=== PATIENT | female | born 1995 | race American Indian/Alaskan Native ===

== ENCOUNTER 2016-10-06 20:03 | Emergency (ER) | payer SELFPAY ==
--- NOTE | 2016-10-06 21:43 | Emergency Department Report ---
ED General Adult HPI - General Chief complaint: Extremity Injury, Upper Stated complaint: MIGRANE,NUMBNESS, THROAT CLOSING Time Seen by Provider: 10/06/16 21:37 Source: patient Limitations: Physical Limitation, Other - History of Present Illness Initial comments: This is a 21-year-old female. She is previously unknown to me. She presents to the ER with a complaint of migraine headache, and inability to feel the left arm, throat closing, chest pain. Migraine headache started at 5:00 this afternoon. It is sharp and throbbing. It is not sudden or thunderclap in nature. It did not reach maximal intensity within an hour. It is associated with frontal facial pain, left-sided neck pain. The patient reports that she was driving at 7:30 PM, and developed inability to move the left arm. She reports left arm numbness. She also reports chest pain. There is no leg pain. There is no leg swelling. No recent trips greater than 4 hours. No recent hospital admissions. Does not take control tablets. Chest pain essential. Has no exacerbating or relieving factors. Patient was brought back to the ER as a possible code stroke. Her fingerstick was 89. She reported that she is not . -: Gradual Location: head, neck, chest, left, upper extremity Radiation: extremity Quality: aching Consistency: constant Improves with: none Worsens with: none Associated Symptoms: chest pain, headaches, weakness - Related Data Previous Rx's Medication Instructions Recorded Last Taken Type Ferrous Sulfate [Feosol 325 MG tab] 325 mg PO TID #90 tablet 10/24/14 Unknown Rx Ibuprofen [Motrin 600 MG tab] 600 mg PO Q6H PRN #10 tablet 10/24/14 Unknown Rx Omeprazole Magnesium [PriLOSEC Otc] 20 mg PO BID #30 tablet. 10/24/14 Unknown Rx Allergies Allergy/AdvReac Type Severity Reaction Status Date / Time No Known Allergies Allergy Unverified 12/18/13 20:07 ED Review of Systems ROS: Stated complaint: MIGRANE,NUMBNESS, THROAT CLOSING Other details as noted in HPI Constitutional: denies: fever Eyes: denies: vision change ENT: denies: epistaxis Respiratory: denies: cough Cardiovascular: chest pain Gastrointestinal: denies: abdominal pain Genitourinary: denies: urgency, dysuria Musculoskeletal: arthralgia, myalgia Skin: denies: lesions Neurological: headache, numbness, paresthesias Psychiatric: anxiety ED Past Medical Hx - Past Medical History Hx Hypertension: No Hx Heart Attack/AMI: No Hx Congestive Heart Failure: No Hx Diabetes: No Hx Deep Vein Thrombosis: No Hx Pulmonary Embolism: No Hx Liver Disease: No Hx Renal Disease: No Hx Sickle Cell Disease: No Hx Arthritis: Yes (hands.knees and ankles) Hx Seizures: No Hx Kidney Stones: No Hx Asthma: No Hx COPD: No Hx Tuberculosis: No Hx Dementia: No Hx HIV: No Additional medical history: ANEMIA, dysfunctional uterine bleeding - Surgical History Hx Coronary Stent: No Hx Pacemaker: No Hx Internal Defibrillator: No - Social History Smoking Status: Never Smoker Substance Use Type: None - Medications Home Medications: Home Medications Medication Instructions Recorded Confirmed Last Taken Type Ferrous Sulfate [Feosol 325 MG tab] 325 mg PO TID #90 tablet 10/24/14 Unknown Rx Ibuprofen [Motrin 600 MG tab] 600 mg PO Q6H PRN #10 tablet 10/24/14 Unknown Rx Omeprazole Magnesium [PriLOSEC Otc] 20 mg PO BID #30 tablet. 10/24/14 Unknown Rx ED Physical Exam - General Limitations: Physical Limitation General appearance: alert, in no apparent distress - Head Head exam: Present: atraumatic, normocephalic - Eye Eye exam: Present: normal appearance, EOMI. Absent: nystagmus - ENT ENT exam: Present: normal exam, normal orophraynx, mucous membranes moist, normal external ear exam - Neck Neck exam: Present: normal inspection, full ROM. Absent: tenderness, meningismus - Respiratory Respiratory exam: Present: normal lung sounds bilaterally. Absent: respiratory distress, wheezes, rales, rhonchi, stridor, decreased breath sounds - Cardiovascular Cardiovascular Exam: Present: regular rate, normal rhythm, normal heart sounds. Absent: bradycardia, tachycardia, irregular rhythm, systolic murmur, diastolic murmur, rubs, gallop - GI/Abdominal GI/Abdominal exam: Present: soft, normal bowel sounds. Absent: distended, tenderness, guarding, rebound, rigid, pulsatile mass - Extremities Exam Extremities exam: Present: normal inspection, full ROM, normal capillary refill. Absent: tenderness, pedal edema, joint swelling, calf tenderness - Back Exam Back exam: Present: normal inspection, full ROM. Absent: tenderness, CVA tenderness (R), CVA tenderness (L), muscle spasm, paraspinal tenderness, vertebral tenderness - Neurological Exam Neurological exam: Present: alert, oriented X3, other (there is no facial droop. The tongue is midline. Extraocular movements are intact bilaterally. Speech is fluid. Sensation intact to light touch in the V1, V2, V3 distribution bilaterally. There is 5/5 strength right upper extremity, right lower extremity, left lower extremity. Sensation is intact to light touch and pinprick in the right upper extremity, bilateral lower extremities. In the left upper extremity, there is 5/5 shade cloth finisher strength. Patient reports decreased sensation to light touch and pinprick. When the left upper extremity is lifted up, the patient is able to hold it against gravity for 10 seconds.) - Psychiatric Psychiatric exam: Present: normal affect, normal mood - Skin Skin exam: Present: warm, dry, intact, normal color. Absent: rash ED Course Vital Signs 10/06/16 22:08 Temperature 98.3 F Pulse Rate 84 Respiratory 12 Rate Blood Pressure 126/78 [Right] O2 Sat by Pulse 100 Oximetry - Reevaluation(s) Reevaluation #1: 10/06/16 22:05 Differential diagnosis: Migraine headache, tension headache, cluster headache, conversion disorder, carotid dissection, cervical radiculopathy, pneumonia, acute coronary syndrome, GERD, gastritis Assessment and plan: 21-year-old female with complaint of headache, chest pain, left arm weakness. Fingerstick is 89. X-ray of the chest demonstrates essentially normal mediastinum, patient has equal pulses in 4 extremities, I think it is very unlikely that the patient has acute aortic disease. No pulmonary embolus or DVT risk factors, low risk by well's criteria, ALTAGRACIA score negative, heart score negative, perc negative. Objectively speaking on the patient's neurologic examination, she endorses weakness in the left upper extremity and decreased sensation. Of note, when this author lifts the patient's left upper extremity up against gravity,, she is able to hold it up without difficulty. I highly doubt acute ischemic stroke, patient's NIH score was 3. CT scan of the brain is negative. Case is discussed with stroke neurology, Dr. Xander Stewart, who is currently in the process of interviewing the patient. Reevaluation #2: 10/06/16 22:33 Patient endorsed a different history to be consult a neurology specialist. She has reported headache for over a week. Neurology recommends treatment for migraine headache, agrees with angiogram. Recommends admission for MRI. Does not recommend TPA at this time. Reevaluation #3: 10/07/16 01:[address] Bateman accepts patient to his service Reevaluation #4: 10/07/16 01:40 The patient does not want to stay for further evaluation and management. She is going to sign out AGAINST MEDICAL ADVICE. The patient is alert and oriented 3, exhibits decision-making capacity, and is free from distracting injury. The risks of leaving, including , disability, paralysis, loss of quality of life were reviewed extensively with the patient and friend/family, the patient was able to verbalize these risks in her own words. She was instructed to return to the ER right away if when she changes her mind, and the AMA conversation is witnessed by nurse Cynthia Mccarthy The hospital physician is informed ED Medical Decision Making - Lab Data Result diagrams: 10/06/16 21:40 10/06/16 21:40 Vital Signs 10/06/16 22:08 Temperature 98.3 F Pulse Rate 84 Respiratory 12 Rate Blood Pressure 126/78 [Right] O2 Sat by Pulse 100 Oximetry Lab Results 10/06/16 10/06/16 10/06/16 Range/Units 21:40 21:40 21:40 WBC 11.9 H (4.5-11.0) K/mm3 RBC 3.77 (3.65-5.03) M/mm3 Hgb 7.4 L (10.1-14.3) gm/dl Hct 24.7 L (30.3-42.9) % MCV 66 L (79-97) fl MCH 20 L (28-32) pg MCHC 30 (30-34) % RDW 30.8 H (13.2-15.2) % Plt Count 879 H (140-440) K/mm3 PT 13.5 (12.2-14.9) Sec. INR 1.04 (0.87-1.13) APTT 35.4 (24.2-36.6) Sec. Thrombin Time 16.0 (15.1-19.6) Sec. Sodium 137 (137-145) mmol/L Potassium 4.0 (3.6-5.0) mmol/L Chloride 100.3 (98-107) mmol/L Carbon Dioxide 24 (22-30) mmol/L Anion Gap 17 mmol/L BUN 12 (7-17) mg/dL Creatinine 0.5 L (0.7-1.2) mg/dL Estimated GFR > 60 ml/min BUN/Creatinine Ratio 24.00 % Glucose 85 (65-100) mg/dL POC Glucose (70-105) Calcium 9.7 (8.4-10.2) mg/dL Total Bilirubin 0.3 (0.1-1.2) mg/dL AST 20 (5-40) units/L ALT 7 (7-56) units/L Alkaline Phosphatase 72 (35-129) units/L Total Creatine Kinase 67 (30-135) units/L CK-MB (CK-2) < 1.0 (0.0-4.0) ng/mL CK-MB (CK-2) Rel Index 1.4 (0-4) Troponin T < 0.010 (0.00-0.029) ng/mL Total Protein 8.4 H (6.3-8.2) g/dL Albumin 4.7 (3.9-5) g/dL Albumin/Globulin Ratio 1.3 % HCG, Quant (0-4) mIU/mL 10/06/16 10/06/16 Range/Units 21:40 21:42 WBC (4.5-11.0) K/mm3 RBC (3.65-5.03) M/mm3 Hgb (10.1-14.3) gm/dl Hct (30.3-42.9) % MCV (79-97) fl MCH (28-32) pg MCHC (30-34) % RDW (13.2-15.2) % Plt Count (140-440) K/mm3 PT (12.2-14.9) Sec. INR (0.87-1.13) APTT (24.2-36.6) Sec. Thrombin Time (15.1-19.6) Sec. Sodium (137-145) mmol/L Potassium (3.6-5.0) mmol/L Chloride (98-107) mmol/L Carbon Dioxide (22-30) mmol/L Anion Gap mmol/L BUN (7-17) mg/dL Creatinine (0.7-1.2) mg/dL Estimated GFR ml/min BUN/Creatinine Ratio % Glucose (65-100) mg/dL POC Glucose 89 (70-105) Calcium (8.4-10.2) mg/dL Total Bilirubin (0.1-1.2) mg/dL AST (5-40) units/L ALT (7-56) units/L Alkaline Phosphatase (35-129) units/L Total Creatine Kinase (30-135) units/L CK-MB (CK-2) (0.0-4.0) ng/mL CK-MB (CK-2) Rel Index (0-4) Troponin T (0.00-0.029) ng/mL Total Protein (6.3-8.2) g/dL Albumin (3.9-5) g/dL Albumin/Globulin Ratio % HCG, Quant < 2 (0-4) mIU/mL - EKG Data 10/06/16 22:34 normal sinus, 83 bpm, normal intervals, normal axis, not morphologically consistent with STEMI. - Radiology Data Radiology results: report reviewed, image reviewed ct head negative for hemorrhage Critical care attestation.: If time is entered above; I have spent that time in minutes in the direct care of this critically ill patient, excluding procedure time. ED Disposition Clinical Impression: Left arm weakness, Chest pain, Anemia Disposition: LEFT AGAINST MEDICAL ADVICE Is pt being admited?: No Does the pt Need Aspirin: Yes Condition: Undetermined Instructions: Chest Pain (ED) Additional Instructions: As we discussed, you have left the hospital/emergency room AGAINST MEDICAL ADVICE. By leaving, you risked , disability, paralysis, permanent loss of quality of life. The ER is open 24 hours a day, 7 days a week. It never closes. Please return to the emergency room right away if and when you change your mind. If you decide not to return to the emergency room, please follow-up with the listed physician referrals as soon as possible. I recommend that you specifically not drive a car, operate motor vehicles until cleared by either primary care physician or neurology specialist. Referrals: PRIMARY CARE, [Primary Care Provider] - 3-5 Days KAILASH TEJEDA MD [Staff Physician] - 3-5 Days CHING TIRADO MD [Staff Physician] - 3-5 Days
[2016-10-06 21:51] LABS: Hematocrit 24.7 % (30.3-42.9); Hemoglobin 7.4 gm/dl (10.1-14.3); Mean Corpuscular HGB Conc 30 % (30-34); Platelet Count 879 K/mm3 (140-440); Red Blood Count 3.77 M/mm3 (3.65-5.03); White Blood Count 11.9 K/mm3 (4.5-11.0)
[2016-10-06 22:02] LABS: Mean Corpuscular Hemoglobin 20 pg (28-32); Mean Corpuscular Volume 66 fl (79-97); Red Cell Distribution Width 30.8 % (13.2-15.2)
[2016-10-06 22:05] LABS: INR 1.04 (0.87-1.13); Partial Thromboplastin Time 35.4 Sec. (24.2-36.6)
--- NOTE | 2016-10-06 22:06 | Cat Scan Report ---
FINAL REPORT EXAM: CT HEAD/BRAIN WO CON HISTORY: suspected stroke TECHNIQUE: CT head without contrast PRIORS: None. FINDINGS: No acute intra-axial or extra-axial hemorrhage is identified. There is no evidence of midline shift or mass effect. The ventricles and sulci are within normal limits. Brambila-white matter differentiation is intact. No acute parenchymal abnormalities seen. Bony calvarium is grossly intact. Visualized portions of the mastoids and paranasal sinuses are unremarkable. IMPRESSION: Negative CT head
[2016-10-06 22:09] VITALS: BP 126/78
[2016-10-06 22:18] LABS: Alanine Aminotransferase 7 units/L (7-56); Albumin 4.7 g/dL (3.9-5); Albumin/Globulin Ratio 1.3 %; Alkaline Phosphatase 72 units/L (35-129); Anion Gap 17 mmol/L; Bilirubin,Total 0.3 mg/dL (0.1-1.2); Blood Urea Nitrogen 12 mg/dL (7-17); Calcium 9.7 mg/dL (8.4-10.2); Carbon Dioxide 24 mmol/L (22-30); Chloride 100.3 mmol/L (98-107); Creatine Kinase 67 units/L (30-135); Glucose 85 mg/dL (65-100); Sodium 137 mmol/L (137-145); Total Protein 8.4 g/dL (6.3-8.2)
[2016-10-06 22:28] LABS: Creatine Kinase MB < 1.0 ng/mL (0.0-4.0)
[2016-10-06 23:00] LABS: Blastocytes % (Manual) 0 %; Platelet Estimate Appears Increased
[2016-10-06] MEDS ORDERED: NACL ONE (23:00)
[2016-10-06 23:01] LABS: Anisocytosis 2+; Hypochromasia 3+; Microcytosis 3+
[2016-10-06 23:02] LABS: Diff Status Complete; Elliptocytes 1+; Large Platelets 1+; Poikilocytosis 1+
[2016-10-06] MEDS ORDERED: TORADOL IV ONE (23:45)
[2016-10-06] MEDS ORDERED: BENADRYL IV ONE (23:45)
[2016-10-06] MEDS ORDERED: REGLAN IV ONE (23:45)
--- NOTE | 2016-10-07 01:03 | Cat Scan Report ---
FINAL REPORT PROCEDURE: CT ANGIO HEAD and neck TECHNIQUE: Computerized tomographic angiography of the head and neck was performed after the IV injection of iodinated nonionic contrast including image processing. The image data was postprocessed using 2-dimensional multiplanar reformatted (MPR) and 3-dimensional (MIP and/or volume rendered) techniques. HISTORY: stroke sx COMPARISON: CT brain of the same date FINDINGS: Cerebrum: No evidence of hemorrhage, acute ischemia or mass. Cerebellum: No evidence of hemorrhage, acute ischemia or mass. Subarachnoid spaces and ventricles: Normal. Intracranial vessels: Carotid siphon: Normal. Anterior cerebral: Normal. Middle cerebral: Normal. Posterior cerebral:Normal. Vertebral arteries including basilar: Normal. Aneurysms: None. Dural sinuses: Normal. Aortic arch is normal. The left and right carotid arteries have a normal appearance. The vertebral arteries are normal. IMPRESSION: Normal Examination.
--- NOTE | 2016-10-07 10:06 | XRay Report ---
Single view chest: Compared to 10/23/14. History: Chest pain. Findings: Normal cardiomediastinal silhouette. Trachea is midline. No consolidation, pneumothorax or pleural effusion. Impression: No acute cardiopulmonary findings.
== END 2016-10-07 02:12 | disposition left against medical advice (07) ==
LOC: ED 20:03
DX: R53.1 Weakness (principal); D64.9 Anemia, unspecified; R07.9 Chest pain, unspecified; M19.90 Unspecified osteoarthritis, unspecified site
CPT/HCPCS: 36415; 70450; 70496; 70498; 71010; 80048; 80053; 82550; 82553; 82962; 84484; 84702; 85007; 85025; 85610; 85670; 85730; 93005; 93010; 96374; 96375; 99285; J1200; J1885; J2765; Q9967

== ENCOUNTER 2017-07-24 17:55 | Emergency (ER) | payer SELFPAY ==
[2017-07-24 19:33] VITALS: BP 120/70
[2017-07-24 20:39] LABS: Mean Corpuscular HGB Conc 29 % (30-34); Platelet Count 587 K/mm3 (140-440); Red Blood Count 2.89 M/mm3 (3.65-5.03)
[2017-07-24 20:41] LABS: Mean Corpuscular Hemoglobin 19 pg (28-32); Mean Corpuscular Volume 66 fl (79-97)
[2017-07-24 20:42] LABS: Red Cell Distribution Width 29.7 % (13.2-15.2)
[2017-07-24 20:44] LABS: Hematocrit 19.1 % (30.3-42.9); Hemoglobin 5.6 gm/dl (10.1-14.3)
[2017-07-24 20:53] LABS: Alanine Aminotransferase 7 units/L (7-56); Albumin 4.6 g/dL (3.9-5); BUN/Creatinine Ratio 16; Blood Urea Nitrogen 8 mg/dL (7-17); Calcium 9.4 mg/dL (8.4-10.2); Hemolysis Index 4
[2017-07-24 22:03] LABS: Basophils % (Manual) 0 % (0.0-1.8); Hypochromasia 2+; Monocytes % (Manual) 0 % (0.0-7.3); Total Cells Counted 100
[2017-07-24 22:04] LABS: Anisocytosis 3+; Large Platelets Few; Platelet Estimate Appears Increased; Tear Drop Cells Few
[2017-07-24] MEDS ORDERED: REGLAN IV ONE (23:26)
[2017-07-24] MEDS ORDERED: NACL 0.9% 250ML 250 ML IV ONE (23:26)
[2017-07-24] MEDS ORDERED: CARAFATE PO ONE (23:26)
[2017-07-24] MEDS ORDERED: BENADRYL IV ONE (23:26)
--- NOTE | 2017-07-24 23:27 | Emergency Department Report ---
ED General Adult HPI - General Chief complaint: Headache Stated complaint: CHERY/N/V Time Seen by Provider: 07/24/17 23:07 Source: patient, RN notes reviewed, old records reviewed Mode of arrival: Ambulatory Limitations: No Limitations - History of Present Illness Initial comments: This is a 22-year-old female whom I have evaluated in the past. Please see my note from 10/06/2016 for more complete details and the patient's past medical history. Patient presents today with a complaint of nausea and vomiting over the past 2-3 days. She reports that in the past one day, she's had one episode of nonbloody, nonbilious emesis. She reports that she is passing gas, and that she has no severe abdominal pain. She denies irritative and obstructive urinary symptoms. She reports that 2 days ago, she had 3 episodes of nonbloody , nonbilious emesis. She also complains of headache. Headache is occipital and throbbing. It radiates to the neck. Patient reports that she has a "pinched nerve" in the neck, and this feels like her typical "nerve pain." The headache is not sudden or thunderclap in nature, it did not reach maximal intensity within an hour, and it is not the worse headache of her life. Patient does not have lightheadedness or generalized weakness or sensation of near syncope. She reports that she is not , and she further reports that her menstruations are quite heavy. -: Gradual Location: head Radiation: neck Quality: aching Consistency: intermittent Improves with: none Worsens with: none Associated Symptoms: headaches, nausea/vomiting. denies: confusion, chest pain , cough, diaphoresis, fever/chills, loss of appetite, malaise, shortness of breath, syncope, weakness - Related Data Previous Rx's Medication Instructions Recorded Last Taken Type Ferrous Sulfate [Feosol 325 MG tab] 325 mg PO TID #90 tablet 10/24/14 Unknown Rx Ibuprofen [Motrin 600 MG tab] 600 mg PO Q6H PRN #10 tablet 10/24/14 Unknown Rx Omeprazole Magnesium [PriLOSEC Otc] 20 mg PO BID #30 tablet. 10/24/14 Unknown Rx Ferrous Sulfate [Feosol 325 MG tab] 325 mg PO TID #90 tablet 07/25/17 Unknown Rx Metoclopramide [Reglan] 10 mg PO QID PRN #30 tablet 07/25/17 Unknown Rx Allergies Allergy/AdvReac Type Severity Reaction Status Date / Time hydrocodone AdvReac Mild Vomiting Verified 07/24/17 21:32 ED Review of Systems ROS: Stated complaint: CHERY/N/V Other details as noted in HPI ED Past Medical Hx - Past Medical History Hx Hypertension: No Hx Heart Attack/AMI: No Hx Congestive Heart Failure: No Hx Diabetes: No Hx Deep Vein Thrombosis: No Hx Pulmonary Embolism: No Hx Liver Disease: No Hx Renal Disease: No Hx Sickle Cell Disease: No Hx Arthritis: Yes (hands.knees and ankles) Hx Seizures: No Hx Kidney Stones: No Hx Asthma: No Hx COPD: No Hx Tuberculosis: No Hx Dementia: No Hx HIV: No Additional medical history: ANEMIA, dysfunctional uterine bleeding - Surgical History Hx Coronary Stent: No Hx Pacemaker: No Hx Internal Defibrillator: No - Social History Smoking Status: Never Smoker Substance Use Type: None - Medications Home Medications: Home Medications Medication Instructions Recorded Confirmed Last Taken Type Ferrous Sulfate [Feosol 325 MG tab] 325 mg PO TID #90 tablet 10/24/14 Unknown Rx Ibuprofen [Motrin 600 MG tab] 600 mg PO Q6H PRN #10 tablet 10/24/14 Unknown Rx Omeprazole Magnesium [PriLOSEC Otc] 20 mg PO BID #30 tablet. 10/24/14 Unknown Rx Ferrous Sulfate [Feosol 325 MG tab] 325 mg PO TID #90 tablet 07/25/17 Unknown Rx Metoclopramide [Reglan] 10 mg PO QID PRN #30 tablet 07/25/17 Unknown Rx ED Physical Exam - General Limitations: No Limitations General appearance: alert, in no apparent distress - Head Head exam: Present: atraumatic, normocephalic - Eye Eye exam: Present: normal appearance, EOMI. Absent: nystagmus - ENT ENT exam: Present: normal exam, normal orophraynx, mucous membranes moist, normal external ear exam - Neck Neck exam: Present: normal inspection, full ROM - Respiratory Respiratory exam: Present: normal lung sounds bilaterally. Absent: respiratory distress - Cardiovascular Cardiovascular Exam: Present: regular rate, normal rhythm, normal heart sounds. Absent: bradycardia, tachycardia, irregular rhythm, systolic murmur, diastolic murmur, rubs, gallop - GI/Abdominal GI/Abdominal exam: Present: soft, normal bowel sounds. Absent: distended, tenderness, guarding, rebound, rigid, pulsatile mass - Extremities Exam Extremities exam: Present: normal inspection, full ROM, normal capillary refill. Absent: pedal edema, joint swelling, calf tenderness - Back Exam Back exam: Present: normal inspection, full ROM. Absent: tenderness, CVA tenderness (R), paraspinal tenderness, vertebral tenderness - Neurological Exam Neurological exam: Present: alert (visual acuity intact to finger counting, color perception, reading at a close distance), oriented X3, CN II-XII intact, normal gait, other (Extraocular movements intact. Tongue midline. No facial droop. Facial sensation intact to light touch in the V1, V2, V3 distribution bilaterally. 5 and 5 strength in 4 extremities.. Sensation is intact to light touch in 4 extremities.). Absent: motor sensory deficit - Psychiatric Psychiatric exam: Present: normal affect, normal mood - Skin Skin exam: Present: warm, dry, intact, normal color. Absent: rash ED Course Vital Signs 07/24/17 19:30 Temperature 98.6 F Pulse Rate 88 Respiratory 20 Rate Blood Pressure 120/70 O2 Sat by Pulse 98 Oximetry ED Medical Decision Making - Lab Data Result diagrams: 07/24/17 20:25 07/24/17 20:25 Vital Signs 07/24/17 19:30 Temperature 98.6 F Pulse Rate 88 Respiratory 20 Rate Blood Pressure 120/70 O2 Sat by Pulse 98 Oximetry Lab Results 07/24/17 07/24/17 07/24/17 Range/Units 20:25 20:25 22:20 WBC 11.2 H (4.5-11.0) K/mm3 RBC 2.89 L (3.65-5.03) M/mm3 Hgb 5.6 L* (10.1-14.3) gm/dl Hct 19.1 L* (30.3-42.9) % MCV 66 L (79-97) fl MCH 19 L (28-32) pg MCHC 29 L (30-34) % RDW 29.7 H (13.2-15.2) % Plt Count 587 H (140-440) K/mm3 Add Manual Diff Complete Total Counted 100 Seg Neuts % (Manual) 84.0 H (40.0-70.0) % Band Neutrophils % 0 % Lymphocytes % (Manual) 15.0 (13.4-35.0) % Reactive Lymphs % (Man) 0 % Monocytes % (Manual) 0 (0.0-7.3) % Eosinophils % (Manual) 1.0 (0.0-4.3) % Basophils % (Manual) 0 (0.0-1.8) % Metamyelocytes % 0 % Myelocytes % 0 % Promyelocytes % 0 % Blast Cells % 0 % Nucleated RBC % Not Reportable Seg Neutrophils # Man 9.4 H (1.8-7.7) K/mm3 Band Neutrophils # 0.0 K/mm3 Lymphocytes # (Manual) 1.7 (1.2-5.4) K/mm3 Abs React Lymphs (Man) 0.0 K/mm3 Monocytes # (Manual) 0.0 (0.0-0.8) K/mm3 Eosinophils # (Manual) 0.1 (0.0-0.4) K/mm3 Basophils # (Manual) 0.0 (0.0-0.1) K/mm3 Metamyelocytes # 0.0 K/mm3 Myelocytes # 0.0 K/mm3 Promyelocytes # 0.0 K/mm3 Blast Cells # 0.0 K/mm3 WBC Morphology Not Reportable Hypersegmented Neuts Not Reportable Hyposegmented Neuts Not Reportable Hypogranular Neuts Not Reportable Smudge Cells Not Reportable Toxic Granulation Not Reportable Toxic Vacuolation Not Reportable Dohle Bodies Not Reportable Pelger-Huet Anomaly Not Reportable Nadia Rods Not Reportable Platelet Estimate Appears increased Clumped Platelets Not Reportable Plt Clumps, EDTA Not Reportable Large Platelets Few Giant Platelets Not Reportable Platelet Satelliting Not Reportable Plt Morphology Comment Not Reportable RBC Morphology Not Reportable Dimorphic RBCs Not Reportable Polychromasia Not Reportable Hypochromasia 2+ Poikilocytosis Not Reportable Anisocytosis 3+ Microcytosis 1+ Macrocytosis Not Reportable Spherocytes Not Reportable Pappenheimer Bodies Not Reportable Sickle Cells Not Reportable Target Cells Not Reportable Tear Drop Cells Few Ovalocytes Not Reportable Helmet Cells Not Reportable [place] Bodies Not Reportable [place] Rings Not Reportable [place] Cells Not Reportable Bite Cells Not Reportable Crenated Cell Not Reportable Elliptocytes Not Reportable Acanthocytes (Spur) Not Reportable Rouleaux Not Reportable Hemoglobin C Crystals Not Reportable Schistocytes Not Reportable Malaria parasites Not Reportable Bradley Bodies Not Reportable Hem Pathologist Commnt No Sodium 138 (137-145) mmol/L Potassium 3.8 (3.6-5.0) mmol/L Chloride 99.1 (98-107) mmol/L Carbon Dioxide 26 (22-30) mmol/L Anion Gap 17 mmol/L BUN 8 (7-17) mg/dL Creatinine 0.5 L (0.7-1.2) mg/dL Estimated GFR > 60 ml/min BUN/Creatinine Ratio 16 % Glucose 104 H (65-100) mg/dL Calcium 9.4 (8.4-10.2) mg/dL Total Bilirubin 0.40 (0.1-1.2) mg/dL AST 24 (5-40) units/L ALT 7 (7-56) units/L Alkaline Phosphatase 53 (35-129) units/L Total Protein 7.9 (6.3-8.2) g/dL Albumin 4.6 (3.9-5) g/dL Albumin/Globulin Ratio 1.4 % HCG, Quant (0-4) mIU/mL Urine Color Straw (Yellow) Urine Turbidity Clear (Clear) Urine pH 6.0 (5.0-7.0) Ur Specific Gaines 1.003 (1.003-1.030) Urine Protein <15 mg/dl (Negative) mg/dL Urine Glucose (UA) Neg (Negative) mg/dL Urine Ketones Neg (Negative) mg/dL Urine Blood Neg (Negative) Urine Nitrite Neg (Negative) Ur Reducing Substances Not Reportable Urine Bilirubin Neg (Negative) Urine Ictotest Not Reportable Urine Urobilinogen < 2.0 (<2.0) mg/dL Ur Leukocyte Esterase Tr (Negative) Urine WBC (Auto) < 1.0 (0.0-6.0) /HPF Urine RBC (Auto) 1.0 (0.0-6.0) /HPF U Epithel Cells (Auto) 2.0 (0-13.0) /HPF Urine Mucus Few /HPF Urine HCG, Qual Negative (Negative) 07/24/17 Range/Units 23:56 WBC (4.5-11.0) K/mm3 RBC (3.65-5.03) M/mm3 Hgb (10.1-14.3) gm/dl Hct (30.3-42.9) % MCV (79-97) fl MCH (28-32) pg MCHC (30-34) % RDW (13.2-15.2) % Plt Count (140-440) K/mm3 Add Manual Diff Total Counted Seg Neuts % (Manual) (40.0-70.0) % Band Neutrophils % % Lymphocytes % (Manual) (13.4-35.0) % Reactive Lymphs % (Man) % Monocytes % (Manual) (0.0-7.3) % Eosinophils % (Manual) (0.0-4.3) % Basophils % (Manual) (0.0-1.8) % Metamyelocytes % % Myelocytes % % Promyelocytes % % Blast Cells % % Nucleated RBC % Seg Neutrophils # Man (1.8-7.7) K/mm3 Band Neutrophils # K/mm3 Lymphocytes # (Manual) (1.2-5.4) K/mm3 Abs React Lymphs (Man) K/mm3 Monocytes # (Manual) (0.0-0.8) K/mm3 Eosinophils # (Manual) (0.0-0.4) K/mm3 Basophils # (Manual) (0.0-0.1) K/mm3 Metamyelocytes # K/mm3 Myelocytes # K/mm3 Promyelocytes # K/mm3 Blast Cells # K/mm3 WBC Morphology Hypersegmented Neuts Hyposegmented Neuts Hypogranular Neuts Smudge Cells Toxic Granulation Toxic Vacuolation Dohle Bodies Pelger-Huet Anomaly Nadia Rods Platelet Estimate Clumped Platelets Plt Clumps, EDTA Large Platelets Giant Platelets Platelet Satelliting Plt Morphology Comment RBC Morphology Dimorphic RBCs Polychromasia Hypochromasia Poikilocytosis Anisocytosis Microcytosis Macrocytosis Spherocytes Pappenheimer Bodies Sickle Cells Target Cells Tear Drop Cells Ovalocytes Helmet Cells [place] Bodies [place] Rings [place] Cells Bite Cells Crenated Cell Elliptocytes Acanthocytes (Spur) Rouleaux Hemoglobin C Crystals Schistocytes Malaria parasites Bradley Bodies Hem Pathologist Commnt Sodium (137-145) mmol/L Potassium (3.6-5.0) mmol/L Chloride (98-107) mmol/L Carbon Dioxide (22-30) mmol/L Anion Gap mmol/L BUN (7-17) mg/dL Creatinine (0.7-1.2) mg/dL Estimated GFR ml/min BUN/Creatinine Ratio % Glucose (65-100) mg/dL Calcium (8.4-10.2) mg/dL Total Bilirubin (0.1-1.2) mg/dL AST (5-40) units/L ALT (7-56) units/L Alkaline Phosphatase (35-129) units/L Total Protein (6.3-8.2) g/dL Albumin (3.9-5) g/dL Albumin/Globulin Ratio % HCG, Quant < 2 (0-4) mIU/mL Urine Color (Yellow) Urine Turbidity (Clear) Urine pH (5.0-7.0) Ur Specific Gaines (1.003-1.030) Urine Protein (Negative) mg/dL Urine Glucose (UA) (Negative) mg/dL Urine Ketones (Negative) mg/dL Urine Blood (Negative) Urine Nitrite (Negative) Ur Reducing Substances Urine Bilirubin (Negative) Urine Ictotest Urine Urobilinogen (<2.0) mg/dL Ur Leukocyte Esterase (Negative) Urine WBC (Auto) (0.0-6.0) /HPF Urine RBC (Auto) (0.0-6.0) /HPF U Epithel Cells (Auto) (0-13.0) /HPF Urine Mucus /HPF Urine HCG, Qual (Negative) - Medical Decision Making Differential diagnosis, including but not limited to: Migraine headache, tension headache, cluster headache, chronic anemia, desire for work excuse Assessment and plan: 22-year-old female who endorsed to me a complaint of headache, nausea and vomiting. When I go to evaluate the patient she is in no distress, and she is noted to be playing on a cellular phone. She is quite pleasant, smiling and appears quite comfortable. She has a normal neurologic examination, and she does not have any clinical signs or symptoms to suggest symptomatic anemia. Plan see test was ordered and found to be negative, and patient medicated appropriately for headache. As per nursing verbal and written report, patient indicated that she really wants a work note. Nursing report further indicates that patient eloped and signed out AGAINST MEDICAL ADVICE. However, her headache did not appear to be dangerous or life-threatening by history, and while her anemia is noted and appreciated, by history this appears to be chronic , and NH pains not require emergent packed red blood cell transfusion given her lack of symptomatology. I will therefore write the patient for prescription for iron sulfate, and have the nursing staff contact the patient and instruct her to take her medications and cotton picker her discharge paperwork. Patient can also follow up with outpatient gynecology for her heavy menstruation. Critical care attestation.: If time is entered above; I have spent that time in minutes in the direct care of this critically ill patient, excluding procedure time. ED Disposition Clinical Impression: Headache, Anemia Disposition: [id number] LEFT AGAINST MED ADVICE Is pt being admited?: No Does the pt Need Aspirin: No Condition: Undetermined Instructions: Anemia (ED) Additional Instructions: Take the medications as needed/directed. Please note that the R and supplementation will may cause constipation, and may cause black tarry stool. Follow up with a brusher and shearer within the next 2-3 weeks for anemia. Follow up with a primary care doctor within the next month for your headache. Return to the ER right away with new pain, worsened pain, migration of pain, fevers, chills, lethargy, irritability, projectile vomiting, change in mental status, confusion, inability to tolerate liquid feeds. Referrals: PRINCESS BHATTI MD [Primary Care Provider] - 3-5 Days [facility] [Provider Group] - 3-5 Days [facility] [Provider Group] - 3-5 Days [facility] [Provider Group] - 3-5 Days Forms: AMA Form
[2017-07-24] MEDS ORDERED: NACL 0.9% 500 ML 500 ML ONE (23:49)
[2017-07-25 00:04] LABS: HCG Qualitative,Urine Negative (Negative)
[2017-07-25 00:09] LABS: Bilirubin,Urine NEG (Negative); Blood,Urine NEG (Negative); Color,Urine Straw (Yellow); Mucus,Urine FEW /HPF; Nitrite,Urine NEG (Negative); Protein,Urine <15 mg/dL mg/dL (Negative); Urobilinogen,Urine < 2.0 mg/dL (<2.0); WBC,Urine < 1.0 /HPF (0.0-6.0)
== END 2017-07-25 00:40 | disposition left against medical advice (07) ==
LOC: ED 17:55
DX: R51 Headache (principal); D64.9 Anemia, unspecified; M19.90 Unspecified osteoarthritis, unspecified site; Z88.6 Allergy status to analgesic agent
CPT/HCPCS: 36415; 80053; 81001; 81025; 84702; 85007; 85025; 96374; 96375; 99283; J1200; J2765; J7040